=== PATIENT | female | born 1990 | race Caucasian/White ===

== ENCOUNTER 2017-02-06 17:08 | Emergency (ER) | payer OTHER ==
[~2017-02-06] VITALS: Ht 157.5 cm; Wt 63.0 kg
[~2017-02-06 17:08] MED LIST: BEN25 PO; PRED50 PO; ZOF8 PO
[2017-02-06 17:23] VITALS: Ht 157.5 cm; Wt 63.0 kg
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
[2017-02-06] MEDS ORDERED: IBUP-1542 PO (18:13)
[2017-02-06] MEDS ORDERED: DIAZ-90 PO (18:14)
== END 2017-02-06 18:16 | disposition home or self-care (01) ==
LOC: E/R 17:08
DX: S19.9XXA Unspecified injury of neck, initial encounter (principal); V49.40XA Driver injured in collision with unspecified motor vehicles in traffic accident, initial encounter
CPT/HCPCS: 99283